=== PATIENT | male | born 1995 | race Caucasian/White ===

== ENCOUNTER 2020-04-24 19:29 | Inpatient (IN) ==
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
[2020-04-24 20:00] LABS: BUN Creatinine Ratio 17.2 (10-20); Creatinine Clr Calc Pharmacy 132.8 ml/min; Est GFR (African American) 122.8; Potassium 3.7 mmol/L (3.5-5.1)
[2020-04-24 20:07] LABS: iSTAT Creatinine 1.6 mg/dl (0.6-1.3); iSTAT Hemoglobin 15.6 g/dl (14.0-18.0); iSTAT Ionized Calcium 1.13 mmol/l (1.12-1.32); iSTAT Potassium 3.8 mmol/L (3.3-5.0)
[2020-04-24] MEDS ORDERED: IOVERSOL 100ml IV ONE (20:09)
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
[2020-04-24 21:00] LABS: Basophils # (auto) 0.06 K/uL (0-0.2); Eosinophils # (auto) 0.24 K/uL (0-0.5); Eosinophils % (auto) 4.1 %; Hematocrit (blood only) 47.5 % (42-52); Hemoglobin 15.9 g/dL (14.0-18.0); Lymphocytes # (auto) 2.26 K/uL (1.2-3.4); Lymphocytes % (auto) 38.2 %; Mean Corpuscular Hemoglobin 31.4 pg (25-34); Mean Corpuscular Hgb Conc 33.5 g/dL (32-36); Mean Corpuscular Volume 93.9 fL (80-100); Mean Platelet Volume 11.3 fL (7.4-10.4); Monocytes # (auto) 0.51 K/uL (0.11-0.59); Monocytes % (auto) 8.6 %; Neutrophils # (auto) 2.85 K/uL (1.4-6.5); Neutrophils % (auto) 48.1 %; Platelet Count 281 K/uL (130-400); RDW Coefficient of Variation 12.9 % (11.5-14.5); RDW Standard Deviation 44.2 fL (36.4-46.3); Red Blood Count 5.06 M/uL (4.7-6.1); White Blood Count 5.92 K/uL (4.8-10.8)
[2020-04-24 21:04] LABS: Alanine Aminotransferase 31 U/L (12-78); Albumin Level 4.2 gm/dl (3.4-5.0); Alkaline Phosphatase 66 U/L (45-117); Aspartate Aminotransferase 24 U/L (15-37); Bilirubin Direct < 0.1 mg/dl (0-0.2); Bilirubin,Total 0.4 mg/dl (0.2-1); Lipase 77 U/L (73-393); Total Protein 8.2 gm/dl (6.4-8.2)
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
[2020-04-24 22:24] LABS: Amphetamines+Metham, Urine Neg (Neg); Barbiturates, Urine Neg (Neg); Benzodiazepine, Urine Neg (Neg); Cocaine, Urine Neg (Neg); MDMA (Ecstacy), Urine Neg (Neg); Methadone, Urine Neg (Neg); Opiate, Urine Neg (Neg); Phencyclidine, Urine Neg (Neg)
[2020-04-24] MEDS ORDERED: LORazepam 1 MG TAB PO PRN (22:31)
[2020-04-24] MEDS ORDERED: ACETAMINOPHEN 325 MG TAB PO PRN (22:31)
[2020-04-24] MEDS ORDERED: ONDANSETRON INJ 2 MG/ML 2 ML VIAL IV PRN (22:31)
[2020-04-24] MEDS ORDERED: LORazepam 3 MG/6 ML VIAL IV PRN (22:31)
[2020-04-24] MEDS ORDERED: LORazepam 1 MG/2 ML VIAL IV PRN (22:31)
[2020-04-24] MEDS ORDERED: ATIVAN IV ALCOHOL WITHDRAWL IV PRN (22:31)
[2020-04-24] MEDS ORDERED: POLYETHYLENE (MIRALAX) 17 GM PACK PO PRN (22:31)
[2020-04-24] MEDS ORDERED: LORazepam 2 MG/4 ML VIAL IV PRN (22:31)
[2020-04-24] MEDS ORDERED: ALUMINUM/MAGNESIUM SUSP 30 ML UDC PO PRN (22:31)
[2020-04-24] MEDS ORDERED: MAGNESIUM HYDROXIDE SUSP 30 ML UDC PO PRN (22:31)
[2020-04-24 23:27] LABS: BUN Creatinine Ratio 15.7 (10-20); Calcium 9.1 mg/dl (8.5-10.1); Creatinine Clr Calc Pharmacy 128.9 ml/min; Est GFR (African American) 118.4; Est GFR (Non-African American) 102.2; Potassium 4.1 mmol/L (3.5-5.1)
[2020-04-24 23:30] LABS: Bilirubin,Total 0.4 mg/dl (0.2-1); Globulin 3.9 gm/dl (2.5-4.0); Total Protein 7.9 gm/dl (6.4-8.2)
[2020-04-24] MEDS: FOLIC ACID 1 MG in SYRINGE 9.8 ML IV SCH (23:44)
[2020-04-24] MEDS: THIAMINE HCL 100 MG in SYRINGE 9 ML IV SCH (23:44)
[2020-04-25] MEDS: LORazepam 1 MG/2 ML VIAL IV PRN ×2 (00:26→02:44)
[2020-04-25 09:30] LABS: Hematocrit (blood only) 45.9 % (42-52); Hemoglobin 15.4 g/dL (14.0-18.0); Mean Corpuscular Hemoglobin 31.4 pg (25-34); Mean Corpuscular Hgb Conc 33.6 g/dL (32-36); Mean Corpuscular Volume 93.5 fL (80-100); Mean Platelet Volume 10.8 fL (7.4-10.4); Platelet Count 261 K/uL (130-400); RDW Coefficient of Variation 13.1 % (11.5-14.5); RDW Standard Deviation 45.1 fL (36.4-46.3); Red Blood Count 4.91 M/uL (4.7-6.1); White Blood Count 4.99 K/uL (4.8-10.8)
[2020-04-25] MEDS: THIAMINE HCL 100 MG in SYRINGE 9 ML IV SCH (09:39)
[2020-04-25] MEDS: FOLIC ACID 1 MG in SYRINGE 9.8 ML IV SCH (09:39)
--- NOTE | 2020-04-25 20:29 | Billing Data ---
Date of Service April 25, 2020 Coding Level of Care Code 44069 Initial Inpt Care Lvl 3
--- NOTE | 2020-04-25 22:23 | Electrocardiogram Report ---
Test Reason : Blood Pressure : / mmHG Vent. Rate : 086 BPM Atrial Rate : 086 BPM P-R Int : 144 ms QRS Dur : 102 ms QT Int : 346 ms P-R-T Axes : 057 076 035 degrees QTc Int : 414 ms Sinus rhythm with Premature supraventricular complexes Incomplete right bundle branch block Possible Septal infarct When compared with ECG of 27-APR-2019 12:51, Premature supraventricular complexes are now Present Incomplete right bundle branch block is now Present Confirmed by Ming Sanchez ([id number]) on 04/25/2020 10:23:48 PM Referred By: REFERRED SELF Confirmed By:Ming Sanchez
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
== END 2020-04-25 13:25 | disposition home or self-care (01) | DRG 897 ==
LOC: ED 19:29 → 3N 21:46 → SUATTDRO 21:46 → 3N 22:08